=== PATIENT | male | born 1960 | race Caucasian/White ===

== ENCOUNTER 2017-02-09 15:07 | Emergency (ER) | payer BC ==
[2017-02-09 15:24] VITALS: BP 132/94
[2017-02-09] MEDS ORDERED: Fluorescein Sodium TOPICAL* 1 MG TEST ONE (15:30)
[2017-02-09] MEDS ORDERED: Eye Irrigation Solution 30 ML BOTTLE ONE (15:31)
[2017-02-09] MEDS ORDERED: Tetracaine 0.5% OPTH.SOL 4 ML* 1 DROP BTL ONE (15:31)
--- NOTE | 2017-02-09 16:04 | UC ---
Eye Complaint HPI - HPI Summary HPI Summary: pain in left eye since this morning, painful to look to the left. Denies any trauma/injury. He denies any trauma or foreigh body. 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 He felt fine yesterday and woke up with his eye slightly swollen and watering clear discharge today. there is mild amount of discomfort. no crusting. no bleeding. - History of Current Complaint Chief Complaint: UCEye Stated Complaint: LEFT EYE IRRITATION Time Seen by Provider: 02/09/17 15:46 - Allergies/Home Medications Allergies/Adverse Reactions: Allergies Allergy/AdvReac Type Severity Reaction Status Date / Time No Known Allergies Allergy Verified 02/09/17 15:24 Home Medications: Home Medications Bp Meds DAILY 02/09/17 [History] Cholecalciferol TAB* [Vitamin D TAB*] 1,000 unit PO DAILY 02/09/17 [History Confirmed 02/09/17] Lansoprazole CAP (NF) [Prevacid CAP (NF)] 15 mg PO DAILY 02/09/17 [History Confirmed 02/09/17] Simvastatin [Zocor 5 MG-] 5 mg PO DAILY 02/09/17 [History Confirmed 02/09/17] PMH/Surg Hx/FS Hx/Imm Hx Previously Healthy: Yes Cardiovascular History Of: Reports: Hypertension - Surgical History Surgical History: Yes Surgery Procedure, Year, and Place: Hernia operation bilateral. Right knee - Family History Known Family History: Positive: Hypertension - Social History Alcohol Use: Occasionally Substance Use Type: None Smoking Status (MU): Never Smoked Tobacco Review of Systems Constitutional: Negative Skin: Negative Eyes: Drainage, Eye Redness, Photophobia ENT: Negative Respiratory: Negative Cardiovascular: Negative Gastrointestinal: Negative Genitourinary: Negative Motor: Negative Neurovascular: Negative Musculoskeletal: Negative Neurological: Negative Psychological: Negative All Other Systems Reviewed And Are Negative: Yes Physical Exam Triage Information Reviewed: Yes Appearance: Well-Appearing, No Pain Distress - joking., Well-Nourished Vital Signs: Initial Vital Signs Temp 98.2 F 02/09/17 15:20 Pulse 78 02/09/17 15:20 Resp 18 02/09/17 15:20 BP 132/94 02/09/17 15:20 Pulse Ox 98 02/09/17 15:20 Vital Signs Reviewed: Yes Eyes: Positive: Discharge - left eye with clear drainage, erythema in sclera and mild swelling and erythema in upper and lower lids., Other: - biggs lamp with flourescein dye shows mild lateral corneal abrasion. ENT: Positive: Pharynx normal Dental Exam: Normal Neck exam: Normal Neck: Positive: Supple, Nontender, No Lymphadenopathy Respiratory Exam: Normal Respiratory: Positive: Lungs clear, Normal breath sounds, No respiratory distress, No accessory muscle use Cardiovascular Exam: Normal Cardiovascular: Positive: RRR, No Murmur, Pulses Normal, Brisk Capillary Refill Abdomen Description: Positive: Nontender, Soft Musculoskeletal Exam: Normal Neurological Exam: Normal Psychological Exam: Normal Skin Exam: Normal Eye Complaint Course/Dx - Course Course Of Treatment: mild left corneal abrasions. I stressed the importance of follow up tomorrow. Can get an eye patch to help with pain. - Differential Dx/Diagnosis Differential Diagnosis/HQI/PQRI: Conjunctivitis, Corneal Abrasion Provider Diagnoses: left eye mild corneal abrasion. Discharge - Discharge Plan Condition: Stable Disposition: HOME Prescriptions: Gentamicin 0.3% OPTH.OINT* 1 applic OPHTHALMIC TID #1 oint Patient Education Materials: Corneal Abrasion (ED) Referrals: German Pagan DO [Primary Care Provider] - 1 Day Additional Instructions: Make sure to use the eye ointment and follow up with your PCP tomorrow. You can use an eye patch to help with edmundo discomfort.
== END 2017-02-09 16:35 | disposition home or self-care (01) ==
LOC: UCCORT 15:07
DX: S05.02XA Injury of conjunctiva and corneal abrasion without foreign body, left eye, initial encounter (principal); X58.XXXA Exposure to other specified factors, initial encounter; Y93.9 Activity, unspecified; Y92.9 Unspecified place or not applicable; I10 Essential (primary) hypertension
CPT/HCPCS: 99212; A9270-GY; G0463

== ENCOUNTER 2022-08-27 07:41 | Observation (INO) ==
[2022-08-27] MEDS ORDERED: LACTATED RINGERS SEPSIS IV ONE (07:54)
[2022-08-27] MEDS ORDERED: Piperacillin/Tazobac ADVAN 3.375 GM in NS 0.9% 100 ml BAG 100 ML IV ONE (07:54)
[2022-08-27 10:23] LABS: ABS Lymphocytes 0.4 10^3/ul (1.0-4.8); ABS Monocytes 0.5 10^3/ul (0-0.8); ABS Neutrophils 5.2 10^3/ul (1.5-7.7); Hematocrit 37 % (42-52); Mean Corpuscular HGB Conc 35 g/dL (31-36); Mean Corpuscular Hemoglobin 33 pg (27-31); Mean Corpuscular Volume 94 fL (80-94); Mean Platelet Volume 7.9 fL (7.4-10.4); Nucleated Red Blood Cells % 0.1; Platelet Count 175 10^3/uL (150-450); Red Blood Count 3.98 10^6 /uL (4.18-5.48); Red Cell Distribution Width 13 % (10-15); White Blood Count 6.1 10^3/uL (3.5-10.8)
[2022-08-27 10:32] LABS: Activated Partial Thrombo Time 28.7 seconds (26.0-38.0); INR 1.18 (0.89-1.11)
[2022-08-27 10:53] LABS: Albumin 4.2 g/dL (3.2-5.2); C Reactive Protein 100.45 mg/L (<8.01); Globulin 2.1 g/dL (2-4); Potassium 3.9 mmol/L (3.5-5.0); Total Bilirubin 0.7 mg/dL (0.2-1.0); Total Protein 6.3 g/dL (6.4-8.9); eGFR CKD-EPI 75.9 (>60)
[2022-08-27 12:19] LABS: Urine Appearance Clear; Urine Bilirubin Negative (Negative); Urine Blood Negative (Negative); Urine Color Yellow; Urine Glucose Negative (Negative); Urine Ketones Negative (Negative); Urine Nitrite Negative (Negative); Urine Protein Negative (Negative); Urine Specific Gravity 1.009 (1.002-1.030); Urine Urobilinogen Negative (Negative)
[2022-08-27] MEDS: cefTRIAXone 2 gm/50 mL D5W 2 GM/50 ML BAG IV SCH (12:45)
[2022-08-27 13:50] LABS: PSA Screening Total 4.811 ng/mL (0-4.000)
[2022-08-27] MEDS: Enoxaparin 40 MG/0.4 ML SYR SUBCUT SCH (15:57)
[2022-08-27] MEDS ORDERED: Latanoprost 0.005% 2.5 ml BTL BOTH EYES SCH (21:00)
[2022-08-28 05:11] LABS: ABS Eosinophils 0.1 10^3/ul (0-0.6); ABS Lymphocytes 0.9 10^3/ul (1.0-4.8); ABS Monocytes 0.7 10^3/ul (0-0.8); ABS Neutrophils 2.7 10^3/ul (1.5-7.7); Hematocrit 34 % (42-52); Hemoglobin 11.8 g/dL (14.0-18.0); Lymphocyte % 20.7 %; Mean Corpuscular HGB Conc 35 g/dL (31-36); Mean Corpuscular Hemoglobin 33 pg (27-31); Mean Corpuscular Volume 93 fL (80-94); Platelet Count 155 10^3/uL (150-450); Red Blood Count 3.63 10^6 /uL (4.18-5.48); Red Cell Distribution Width 13 % (10-15); White Blood Count 4.3 10^3/uL (3.5-10.8)
[2022-08-28 05:34] LABS: Calcium 9.3 mg/dL (8.6-10.3); Potassium 3.8 mmol/L (3.5-5.0); eGFR CKD-EPI 81.2 (>60)
[2022-08-28 08:21] LABS: Magnesium 1.7 mg/dL (1.9-2.7)
[2022-08-28 11:54] VITALS: BP 118/79
[2022-08-28] MEDS ORDERED: Magnesium Sulfate IV 3 GM in NS 0.9% 100 ml BAG 100 ML IVPB ONE (12:06)
[2022-08-28] MEDS: cefTRIAXone 2 gm/50 mL D5W 2 GM/50 ML BAG IV SCH (12:59)
[2022-08-28] MEDS: Enoxaparin 40 MG/0.4 ML SYR SUBCUT SCH (13:00)
== END 2022-08-28 14:05 | disposition home or self-care (01) ==
LOC: ED 07:41 → EDHOLD 07:41 → MED 14:36
PROVIDERS: ADMIT Internal Medicine; ATTEND Internal Medicine